=== PATIENT | male | born 1995 | race Caucasian/White ===

== ENCOUNTER 2018-05-18 21:56 | Emergency (ER) | payer BC, OTHER ==
[2018-05-18] MEDS ORDERED: Adacel (T-DAP) 0.5 ML VIAL ONE (22:11)
[2018-05-18] MEDS ORDERED: Bacitracin Zinc 1 Packet ONE (22:40)
== END 2018-05-18 22:50 | disposition home or self-care (01) ==
LOC: SCSER 21:56
DX: S71.112A Laceration without foreign body, left thigh, initial encounter (principal); Z23 Encounter for immunization; W27.0XXA Contact with workbench tool, initial encounter
CPT/HCPCS: 12002; 90471; 90715